=== PATIENT | male | born 1955 | race Caucasian/White ===

== ENCOUNTER 2020-01-11 01:03 | Emergency (ER) | payer OTHER ==
[~2020-01-11] VITALS: Ht 180.3 cm; Wt 79.5 kg
[~2020-01-11 01:03] MED LIST: DOXE10CA2 PO; METO-391 PO
[2020-01-11 01:09] VITALS: BP 143/83
== END 2020-01-11 02:26 | disposition left against medical advice (07) ==
LOC: EMS 01:06
DX: M25.571 Pain in right ankle and joints of right foot (principal); Z53.21 Procedure and treatment not carried out due to patient leaving prior to being seen by health care provider

== ENCOUNTER 2020-02-09 10:32 | Inpatient (IN) | payer OTHER ==
[~2020-02-09] VITALS: Ht 172.7 cm; Wt 78.3 kg
[2020-02-09] MEDS ORDERED: GABA-531 PO (10:38)
[2020-02-09] MEDS ORDERED: DILTIAZEM HCL 5 MG/ML 5 ML VIAL IVP ONE (11:00)
[2020-02-09 11:20] LABS: BASOPHILS % (AUTO) 0.5 % (0.0-2.0); EOSINOPHILS % (AUTO) 0.2 % (1.0-6.0); HEMATOCRIT 46.1 % (41-53); LYMPHOCYTES # (AUTO) 2.2 K/uL (1.0-4.8); MEAN CORPUSCULAR HEMOGLOBIN 31.1 pg (26.0-34.0); MEAN CORPUSCULAR HGB CONC 32.6 G/dL (31.0-37.0); MEAN CORPUSCULAR VOLUME 96 fL (80-100); MONOCYTES # (AUTO) 0.9 K/uL (0.1-1.0); MONOCYTES % (AUTO) 10.6 % (2.0-9.0); NEUTROPHILS # (AUTO) 5.5 K/uL (1.8-7.7); NEUTROPHILS % (AUTO) 63.7 % (40.0-70.0); PLATELET COUNT (AUTO) 299 K/uL (150-450); RED BLOOD CELL COUNT(AUTO) 4.82 MIL/uL (4.50-5.90); RED CELL DISTRIBUTION WIDTH 14.7 % (11.5-14.5)
[2020-02-09 11:44] LABS: ANION GAP 19 mmol/L (8-16); B-TYPE NATRIURETIC PEPTIDE > 5000 pg/mL (0-100); CALCIUM, TOTAL 9.9 mg/dL (8.8-10.5); CARBON DIOXIDE 19 mmol/L (22-29); CHLORIDE 101 mmol/L (98-107); CREATININE 1.96 mg/dL (0.60-1.30); GLOMERULAR FILTR. RATE CALC 35 mL/min (>60); GLUCOSE,RANDOM 136 mg/dL (70-110); POTASSIUM 4.9 mmol/L (3.5-5.1); SODIUM SERUM 139 mmol/L (136-145); UREA NITROGEN, BLOOD 21 mg/dL (7-18)
[2020-02-09] MEDS ORDERED: DILTIAZEM HCL 30 MG TABLET PO ONE (11:45)
[2020-02-09] MEDS ORDERED: ASPIRIN 81 MG CHEWABLE TABLET PO ONE (12:00)
[2020-02-09] MEDS ORDERED: FUROSEMIDE 40 MG/4 ML VIAL IVP ONE (12:00)
[2020-02-09] MEDS ORDERED: NITROGLYCERIN 2% (1 GM=INCH) PACKET TP ONE (12:00)
[2020-02-09 12:08] LABS: ALANINE AMINOTRANSFERASE 647 U/L (12-78); ALBUMIN 3.9 g/dL (3.4-5.0); ALKALINE PHOSPHATASE 70 U/L (46-116); ASPARTATE AMINOTRANSFERASE 908 U/L (15-37); BILIRUBIN,TOTAL 2.7 mg/dL (0.1-1.0); CREATINE KINASE, TOTAL ONLY 101 U/L (39-308); TOTAL PROTEIN, SERUM 8.3 g/dL (6.4-8.2)
[2020-02-09] MEDS ORDERED: HEPARIN SODIUM,PORCINE 5,000 UNITS/ML VIAL IVP PRN ×2 (12:45)
[2020-02-09] MEDS ORDERED: HEPARIN SODIUM 25000 UNITS/D5W 250 ML IV PRN (12:45)
[2020-02-09] MEDS ORDERED: METOPROLOL TARTRATE 5 MG/5 ML VIAL IVP PRN (13:07)
[2020-02-09] MEDS ORDERED: ACETAMINOPHEN 325 MG TABLET PO PRN ×2 (13:15→14:00)
[2020-02-09] MEDS ORDERED: ONDANSETRON HCL 4 MG/2 ML VIAL IVP PRN ×2 (13:15→14:00)
[2020-02-09 13:27] LABS: INR 1.7 (0.9-1.1); PROTHROMBIN TIME 17.6 SEC (9.4-11.6)
[2020-02-09] MEDS ORDERED: HEPARIN SODIUM,PORCINE 5,000 UNITS/ML VIAL IVP ONE (13:45)
[2020-02-09] MEDS ORDERED: ZOLPIDEM TARTRATE 5 MG TABLET PO PRN (14:00)
[2020-02-09] MEDS ORDERED: 0.9% SODIUM CHLORIDE 10 ML SYRINGE IVP PRN (14:00)
[2020-02-09 14:40] VITALS: BP 132/74
[2020-02-09 16:17] VITALS: BP 125/65
[2020-02-09] MEDS: METOPROLOL SUCCINATE 50 MG ER TABLET PO SCH ×2 (16:17→21:00)
[2020-02-09 20:30] VITALS: BP 126/67
[2020-02-09] MEDS: GABAPENTIN 300 MG CAPSULE PO SCH (21:00)
[2020-02-09] MEDS: DOXEPIN HCL 10 MG CAPSULE PO SCH (21:00)
[2020-02-09] MEDS ORDERED: AMIODARONE HCL 150 MG in DEXTROSE 5%-WATER 97 ML IV ONE (22:15)
[2020-02-09] MEDS ORDERED: AMIODARONE HCL 360 MG in DEXTROSE 5%-WATER 242.8 ML IV ONE (22:30)
[2020-02-09] MEDS ORDERED: FUROSEMIDE 40 MG/4 ML VIAL IVP SCH (23:00)
[2020-02-10] VITALS: BP 109/52
[2020-02-10] MEDS ORDERED: ALPRAZolam 0.5 MG TABLET PO PRN (02:00)
[2020-02-10] MEDS ORDERED: HEPARIN SODIUM 25000 UNITS/D5W 250 ML IV PRN (02:57)
[2020-02-10] MEDS ORDERED: HEPARIN SODIUM,PORCINE 5,000 UNITS/ML VIAL IVP PRN ×2 (03:00)
[2020-02-10] MEDS ORDERED: MORPHINE SULFATE 2 MG/ML SYRINGE IVP PRN (03:30)
[2020-02-10 03:43] LABS: ABG METHEMOGLOBIN 0.3 % (0.0-1.5); SOURCE, BLOOD GAS ARTERIAL; TEMPERATURE, FAHRENHEIT, BG 98.5 FAHREN (96.0-98.6)
[2020-02-10 03:45] LABS: ABG A-A DIFF O2 215.5 mmHg (10-20.0); ABG BASE EXCESS -20.9 mmol/L (-2.0-3.0); ABG CARBOXYHEMOGLOBIN 0.8 % (0.0-1.5); ABG HCO3 11.4 mmol/L (22.0-26.0); ABG OXYGEN CONTENT 19.2 mL/dL (15.0-23.0); ABG OXYHEMOGLOBIN 94.9 % (94.0-100.0); ABG PH 7.284 (7.35-7.450); ABG TOTAL HEMOGLOBIN 14.3 G/dL (12.0-18.0); PO2, ARTERIAL BG 91.3 mmHg (79.0-87.0)
[2020-02-10 03:47] LABS: ABG PCO2 12 mmHg (35-45); SITE, BLOOD GAS RT BRACHIAL
[2020-02-10 03:48] LABS: O2 DEVICE,BLOOD GAS CANNULA (ROOM AIR)
[2020-02-10 03:56] LABS: BASOPHILS % (AUTO) 1.3 % (0.0-2.0); EOSINOPHILS % (AUTO) 0.2 % (1.0-6.0); HEMATOCRIT 43.3 % (41-53); HEMOGLOBIN 13.9 g/dL (13.5-17.5); LYMPHOCYTES # (AUTO) 2.8 K/uL (1.0-4.8); LYMPHOCYTES % (AUTO) 24.2 % (22.0-44.0); MEAN CORPUSCULAR HEMOGLOBIN 31.3 pg (26.0-34.0); MEAN CORPUSCULAR HGB CONC 32.2 G/dL (31.0-37.0); MEAN CORPUSCULAR VOLUME 97 fL (80-100); MONOCYTES # (AUTO) 1.2 K/uL (0.1-1.0); MONOCYTES % (AUTO) 10.1 % (2.0-9.0); NEUTROPHILS # (AUTO) 7.5 K/uL (1.8-7.7); NEUTROPHILS % (AUTO) 64.2 % (40.0-70.0); PLATELET COUNT (AUTO) 273 K/uL (150-450); RED BLOOD CELL COUNT(AUTO) 4.45 MIL/uL (4.50-5.90); RED CELL DISTRIBUTION WIDTH 14.9 % (11.5-14.5)
[2020-02-10 04:00] VITALS: BP 90/61
[2020-02-10 04:05] LABS: CALCIUM, TOTAL 9.5 mg/dL (8.8-10.5); CREATININE 2.43 mg/dL (0.60-1.30)
[2020-02-10] MEDS ORDERED: AMIODARONE HCL 540 MG in DEXTROSE 5%-WATER 239.2 ML IV ONE (04:30)
[2020-02-10] MEDS ORDERED: FUROSEMIDE 40 MG/4 ML VIAL IVP ONE (05:00)
[2020-02-10 08:00] VITALS: BP 112/59
[2020-02-10] MEDS: GABAPENTIN 300 MG CAPSULE PO SCH (09:00)
[2020-02-10] MEDS: METOPROLOL SUCCINATE 50 MG ER TABLET PO SCH ×2 (09:00→21:00)
[2020-02-10] MEDS ORDERED: PANTOPRAZOLE SODIUM 40 MG DR TABLET PO SCH (09:00)
[2020-02-10] MEDS ORDERED: RAPID SEQUENCE KIT [RSI] 1 EACH KIT ONE (09:21)
[2020-02-10] MEDS ORDERED: SODIUM CHLORIDE 0.9% 1,000 ML ONE ×2 (09:24→19:03)
[2020-02-10] MEDS ORDERED: PROPOFOL 1000 MG/ISO-OSM 100 ML IV PRN (09:33)
[2020-02-10] MEDS ORDERED: NOREPINEPHRINE 4 MG/D5%-WATER 250 ML IV PRN (09:33)
[2020-02-10 12:00] VITALS: BP 77/65
[2020-02-10] MEDS ORDERED: SODIUM CHLORIDE 0.9% 500 ML IV ONE (12:07)
[2020-02-10 12:40] LABS: ABG A-A DIFF O2 282.7 mmHg (10-20.0); ABG CARBOXYHEMOGLOBIN 0.3 % (0.0-1.5); ABG METHEMOGLOBIN 0.2 % (0.0-1.5); ABG OXYGEN CONTENT 22.2 mL/dL (15.0-23.0); ABG OXYGEN SATURATION 99.9 % (95.0-98.0); ABG OXYHEMOGLOBIN 99.4 % (94.0-100.0); ABG PCO2 31 mmHg (35-45); ABG PH 6.969 (7.35-7.450); ABG TOTAL HEMOGLOBIN 15.1 G/dL (12.0-18.0); PO2, ARTERIAL BG 403.6 mmHg (79.0-87.0); SOURCE, BLOOD GAS ARTERIAL; TEMPERATURE, FAHRENHEIT, BG 95.6 FAHREN (96.0-98.6)
[2020-02-10 12:41] LABS: O2 DEVICE,BLOOD GAS VENTILATOR (ROOM AIR); PEEP,BG 5 cm H2O; SITE, BLOOD GAS ARTERIAL LINE; VT, ABG 500 ml
[2020-02-10] MEDS ORDERED: VASOPRESSIN 40 UNITS in DEXTROSE 5%-WATER 98 ML IV PRN (12:45)
[2020-02-10] MEDS ORDERED: PHENYLEPHRINE 200 MG/D5%-WATER 250 ML IV PRN (12:45)
[2020-02-10] MEDS ORDERED: DOXYCYCLINE HYCLATE 100 MG in DEXTROSE 5%-WATER 100 ML IV SCH (13:00)
[2020-02-10] MEDS ORDERED: SODIUM BICARBONATE [ADULT] 8.4% 50 MEQ/50 ML SYRINGE IVP ONE (13:00)
[2020-02-10] MEDS ORDERED: VANCOMYCIN HCL 1.5 GM in DEXTROSE 5%-WATER 250 ML IV ONE (13:30)
[2020-02-10] MEDS ORDERED: SODIUM BICARBONATE 150 MEQ in DEXTROSE 5%-WATER 1,000 ML IV SCH (14:15)
[2020-02-10 14:46] LABS: ABG BASE EXCESS -17.9 mmol/L (-2.0-3.0); ABG CARBOXYHEMOGLOBIN 0.4 % (0.0-1.5); ABG METHEMOGLOBIN 0.1 % (0.0-1.5); ABG OXYGEN CONTENT 20.3 mL/dL (15.0-23.0); ABG OXYGEN SATURATION 99.8 % (95.0-98.0); ABG OXYHEMOGLOBIN 99.3 % (94.0-100.0); ABG PCO2 34 mmHg (35-45); ABG TOTAL HEMOGLOBIN 13.9 G/dL (12.0-18.0); PO2, ARTERIAL BG 336.8 mmHg (79.0-87.0); SOURCE, BLOOD GAS ARTERIAL; TEMPERATURE, FAHRENHEIT, BG 96.5 FAHREN (96.0-98.6)
[2020-02-10 14:47] LABS: ABG PH 7.134 (7.35-7.450); O2 DEVICE,BLOOD GAS VENTILATOR (ROOM AIR); PEEP,BG 5 cm H2O; SITE, BLOOD GAS ARTERIAL LINE; VT, ABG 500 ml
[2020-02-10] MEDS ORDERED: SODIUM CHLORIDE 0.9% 250 ML IV ONE (14:47)
[2020-02-10] MEDS: PIPERACILLIN SODIUM/TAZOBACTAM 2.25 GM in DEXTROSE 5%-WATER 50 ML IV SCH ×2 (14:53→17:57)
[2020-02-10 16:00] VITALS: BP 126/59
[2020-02-10] MEDS ORDERED: HEPARIN SODIUM,PORCINE 1,000 UNITS/ML VIAL ONE (16:00)
[2020-02-10] MEDS ORDERED: FUROSEMIDE 40 MG/4 ML VIAL IVP SCH (16:00)
[2020-02-10] MEDS ORDERED: POTASSIUM CHLORIDE 20 MEQ in NXSTAGE RFP-402 K0/CA3 5,000 ML IRRIG PRN (17:15)
[2020-02-10 18:09] LABS: APPEARANCE,URINE CLEAR (CLEAR); BILIRUBIN,URINE NEGATIVE (NEGATIVE); GLUCOSE, URINE (UA) NEGATIVE (NEGATIVE); KETONES,URINE NEGATIVE (NEGATIVE); LEUKOCYTE ESTERASE ,URINE NEGATIVE (NEGATIVE); NITRATE,URINE NEGATIVE (NEGATIVE); OCCULT BLOOD,URINE NEGATIVE (NEGATIVE); PROTEIN,URINE TRACE (NEGATIVE)
[2020-02-10 18:13] LABS: CREATININE,URINE RANDOM 136.2 mg/dL (30.0-125.0); SODIUM,URINE RANDOM 37 mmol/l (20-110); UREA NITROGEN,URINE RANDOM 430 mg/dL (350-1000)
[2020-02-10 18:25] LABS: AMORPHOUS SEDIMENT,UR Few /LPF (None Seen); BACTERIA,URINE Rare /HPF (None Seen); HYALINE CASTS, URINE 0-2 /LPF (None Seen); RBC,URINE 0-2 /HPF (0-2); SQUAMOUS EPITHELIAL CELL,UR Few /LPF (None Seen); WBC,URINE 0-2 /HPF (0-5)
[2020-02-10 19:24] LABS: CALCIUM, TOTAL 7.8 mg/dL (8.8-10.5); CREATININE 2.68 mg/dL (0.60-1.30); POTASSIUM 3.8 mmol/L (3.5-5.1)
[2020-02-10 19:27] LABS: MAGNESIUM 1.8 mg/dL (1.80-2.40); PHOSPHORUS 6.4 mg/dL (2.5-4.9)
[2020-02-10 20:37] LABS: ABG A-A DIFF O2 116.1 mmHg (10-20.0); ABG BASE EXCESS -17.5 mmol/L (-2.0-3.0); ABG CARBOXYHEMOGLOBIN 0.4 % (0.0-1.5); ABG HCO3 12.8 mmol/L (22.0-26.0); ABG METHEMOGLOBIN 0.3 % (0.0-1.5); ABG OXYGEN CONTENT 18.9 mL/dL (15.0-23.0); ABG OXYGEN SATURATION 99.7 % (95.0-98.0); ABG PCO2 21 mmHg (35-45); ABG PH 7.271 (7.35-7.450); ABG TOTAL HEMOGLOBIN 12.9 G/dL (12.0-18.0); PO2, ARTERIAL BG 362.7 mmHg (79.0-87.0); SOURCE, BLOOD GAS ARTERIAL; TEMPERATURE, FAHRENHEIT, BG 95.9 FAHREN (96.0-98.6)
[2020-02-10 20:38] LABS: O2 DEVICE,BLOOD GAS VENTILATOR (ROOM AIR); PEEP,BG 5 cm H2O; SITE, BLOOD GAS RT FEMORAL; VT, ABG 500 ml
[2020-02-10] MEDS ORDERED: DOPamine HCL 400 MG/D5%-WATER 250 ML IV PRN (21:00)
[2020-02-10] MEDS: DOXEPIN HCL 10 MG CAPSULE PO SCH (21:00)
[2020-02-10 21:20] VITALS: BP 61/28
[2020-02-10] MEDS ORDERED: VECURONIUM BROMIDE 10 MG/VIAL IV ONE (21:32)
[2020-02-10] MEDS ORDERED: EPINEPHrine 1:10,000 [1 MG/10 ML] SYRINGE IVP ONE (21:32)
[2020-02-10] MEDS ORDERED: ETOMIDATE 2 MG/ML 10 ML VIAL IV ONE (21:32)
[2020-02-11] MEDS ORDERED: AMIODARONE HCL 750 MG in DEXTROSE 5%-WATER 485 ML IV SCH ×2
[2020-02-11] MEDS ORDERED: VANCOMYCIN HCL 1 GM/D5% WATER 200 ML IV SCH (07:00)
== END 2020-02-10 21:33 | disposition expired | DRG 720 ==
LOC: EMS 10:33 → 5N 14:09 → ICU 22:55
PROVIDERS: ADMIT Internal Medicine; ATTEND Internal Medicine
PROC: 0BH17EZ Insertion of Endotracheal Airway into Trachea, Via Natural or Artificial Opening (ICD-10-PCS; principal; 2020-02-10)
PROC: 5A12012 Performance of Cardiac Output, Single, Manual (ICD-10-PCS; 2020-02-10)
PROC: 5A1935Z Respiratory Ventilation, Less than 24 Consecutive Hours (ICD-10-PCS; 2020-02-10)
PROC: 02HV33Z Insertion of Infusion Device into Superior Vena Cava, Percutaneous Approach (ICD-10-PCS; 2020-02-10)
PROC: B548ZZA Ultrasonography of Superior Vena Cava, Guidance (ICD-10-PCS; 2020-02-10)
PROC: 04HY32Z Insertion of Monitoring Device into Lower Artery, Percutaneous Approach (ICD-10-PCS; 2020-02-10)
PROC: 05HY33Z Insertion of Infusion Device into Upper Vein, Percutaneous Approach (ICD-10-PCS; 2020-02-10)
PROC: B543ZZA Ultrasonography of Right Jugular Veins, Guidance (ICD-10-PCS; 2020-02-10)
PROC: 5A1D90Z Performance of Urinary Filtration, Continuous, Greater than 18 hours Per Day (ICD-10-PCS; 2020-02-10)
DX: A41.9 Sepsis, unspecified organism (principal); I21.4 Non-ST elevation (NSTEMI) myocardial infarction; I46.9 Cardiac arrest, cause unspecified; J96.01 Acute respiratory failure with hypoxia; I48.91 Unspecified atrial fibrillation; E87.2 Acidosis; F32.9 Major depressive disorder, single episode, unspecified; I50.21 Acute systolic (congestive) heart failure; E87.1 Hypo-osmolality and hyponatremia; R65.21 Severe sepsis with septic shock; N17.0 Acute kidney failure with tubular necrosis; I13.0 Hypertensive heart and chronic kidney disease with heart failure and stage 1 through stage 4 chronic kidney disease, or unspecified chronic kidney disease; N18.9 Chronic kidney disease, unspecified; R64 Cachexia; K72.00 Acute and subacute hepatic failure without coma; F10.20 Alcohol dependence, uncomplicated; Z79.899 Other long term (current) drug therapy; Z87.11 Personal history of peptic ulcer disease; Z68.26 Body mass index [BMI] 26.0-26.9, adult; Z90.49 Acquired absence of other specified parts of digestive tract; Z95.2 Presence of prosthetic heart valve; Z99.11 Dependence on respirator [ventilator] status
CPT/HCPCS: 36600; 74018; 82570; 82805; 83735; 84100; 84145; 84300; 84540; 87081; 87340; 87635; 93005; 93306; 94002; G0378; J0171; J0282; J1265; J1644; J1940; J2270; J2370; J2543; J2704; J3370; J3480; J3490; J7030; J7040; J7050; J7060